=== PATIENT | male | born 1955 | race Asian ===

== ENCOUNTER 2019-05-21 06:49 | Day surgery (SDC) | payer OTHER ==
[~2019-05-21] VITALS: Ht 167.6 cm; Wt 79.4 kg
[2019-05-21] MEDS ORDERED: METO50TE2 PO (07:39)
[2019-05-21] MEDS ORDERED: ATOR20TA PO (07:39)
[2019-05-21] MEDS ORDERED: ALLO100T21 PO (07:39)
[2019-05-21] MEDS ORDERED: LIDOCAINE 2% 100 MG/5 ML UJET TP ONE (08:21)
[2019-05-21] MEDS ORDERED: fentaNYL 0.05 MG/ML VIAL ONE (08:21)
== END 2019-05-21 09:42 | disposition home or self-care (01) ==
LOC: MOR 06:49 → MTU 06:57 → MOR 09:42
PROVIDERS: ATTEND Internal Medicine Gastroenterology
DX: Z12.11 Encounter for screening for malignant neoplasm of colon (principal); D12.5 Benign neoplasm of sigmoid colon; K57.30 Diverticulosis of large intestine without perforation or abscess without bleeding; K64.8 Other hemorrhoids; I10 Essential (primary) hypertension; Z86.010 Personal history of colon polyps; Z87.891 Personal history of nicotine dependence; Z79.899 Other long term (current) drug therapy
CPT/HCPCS: 45385; J3010

== ENCOUNTER 2020-10-18 11:26 | Emergency (ER) | payer OTHER ==
[~2020-10-18] VITALS: Ht 160 cm; Wt 77.1 kg
[~2020-10-18 11:26] MED LIST: ALLO100T21 PO; ATOR20TA PO; METO50TE2 PO
[2020-10-18 11:29] VITALS: BP 198/114
--- NOTE | 2020-10-18 11:35 | NUR ---
Patient taken to bed 05
[2020-10-18] MEDS ORDERED: CLONIDINE HYDROCHLORIDE 0.1 MG TAB PO ONE (11:40)
--- NOTE | 2020-10-18 11:52 | NUR ---
65 Y/O MALE BIBA FROM HOME FOR CHEST PRESSURE/PAIN X1 WEEK. PATIENT DENIES ANY SOB/FEVER/COUGH. PATIENT STATES HE FEELS LIKE HE IS WORKING TOO MUCH, AND CHEST PAIN MAY BE CAUSED BY STRESS. PAIN IS 5/10, NON RADIATING. DENIES N/V. AAOX4. GCS 15. AMBULATORY WITH STEADY GAIT. PMH: DM. HTN, STROKE
[2020-10-18 12:17] LABS: BASOPHILS % (AUTO) 0.6 % (0.0-2.0); EOSINOPHILS # (AUTO) 0.3 K/uL (0-0.4); EOSINOPHILS % (AUTO) 4.2 % (0.0-4.0); HEMATOCRIT 47.8 % (36-52); HEMOGLOBIN 16.2 g/dL (12.0-18.0); LYMPHOCYTES % (AUTO) 12.7 % (20.5-51.1); MEAN CORPUSCULAR HEMOGLOBIN 30 pg (27-31); MEAN CORPUSCULAR HGB CONC 34 g/dL (33-37); MONOCYTES # (AUTO) 0.8 K/uL (0.8-1.0); MONOCYTES % (AUTO) 9.6 % (1.7-9.3); NEUTROPHILS # (AUTO) 5.8 K/uL (1.8-7.7); NEUTROPHILS % (AUTO) 72.9 % (42.2-75.2); PLATELET COUNT (AUTO) 202 K/uL (140-450); RED BLOOD CELL COUNT(AUTO) 5.31 MIL/uL (4.20-6.10); RED CELL DISTRIBUTION WIDTH 13.5 % (11.6-13.7)
--- NOTE | 2020-10-18 12:36 | NUR ---
PATIENT STATES HE IS FEELING BETTER, HAS NO MORE PALPITATIONS
[2020-10-18 12:41] LABS: ALBUMIN 4.3 g/dL (3.4-5.0); ANION GAP 13.8 (8-16); CARBON DIOXIDE 26.2 mmol/L (21-32); CREATININE 1.4 mg/dL (0.6-1.3); TOTAL BILIRUBIN 1.3 mg/dL (0.0-1.0)
[2020-10-18 14:50] LABS: FREE T4 (FREE THYROXINE) 1.25 ng/dL (0.76-1.46); MAGNESIUM 2.3 mg/dL (1.8-2.4); THYROID STIMULATING HORMONE 0.52 uIU/mL (0.34-3.74)
[2020-10-18 15:02] VITALS: BP 129/80
--- NOTE | 2020-10-18 15:02 | NUR ---
Patient discharged with v/s stable. Written and verbal after care instructions given and explained. Patient verbalized understanding. Ambulatory with steady gait. All questions addressed prior to discharge. Advised to follow up with PMD.
== END 2020-10-18 15:02 | disposition home or self-care (01) ==
LOC: MED 11:26
DX: R00.2 Palpitations (principal); I10 Essential (primary) hypertension; Z79.899 Other long term (current) drug therapy
CPT/HCPCS: 36415; 71045; 80053; 83735; 83880; 84439; 84443; 84484; 85025; 93005; 99285

== ENCOUNTER 2020-12-02 02:37 | Emergency (ER) | payer OTHER ==
[~2020-12-02] VITALS: Ht 167.6 cm; Wt 78.9 kg
[2020-12-02 02:40] VITALS: BP 177/110
[2020-12-02] MEDS ORDERED: NACL 0.9% 1,000 ML IV ONE (03:00)
[2020-12-02 03:17] LABS: BASOPHILS % (AUTO) 0.8 % (0.0-2.0); EOSINOPHILS # (AUTO) 0.6 K/uL (0-0.4); EOSINOPHILS % (AUTO) 12.5 % (0.0-4.0); HEMATOCRIT 46.3 % (36-52); HEMOGLOBIN 15.3 g/dL (12.0-18.0); LYMPHOCYTES # (AUTO) 0.9 K/uL (2.0-11.5); MEAN CORPUSCULAR HEMOGLOBIN 30 pg (27-31); MEAN CORPUSCULAR HGB CONC 33 g/dL (33-37); MEAN CORPUSCULAR VOLUME 90.5 fL (80-94); MONOCYTES # (AUTO) 0.5 K/uL (0.8-1.0); MONOCYTES % (AUTO) 10.6 % (1.7-9.3); PLATELET COUNT (AUTO) 192 K/uL (140-450); RED BLOOD CELL COUNT(AUTO) 5.11 MIL/uL (4.20-6.10); RED CELL DISTRIBUTION WIDTH 13.6 % (11.6-13.7); WHITE BLOOD COUNT (AUTO) 5.1 K/uL (4.8-10.8)
[2020-12-02 03:32] LABS: NEUTROPHILS % (AUTO) 58.1 % (42.2-75.2)
[2020-12-02 03:33] LABS: ALBUMIN 4.1 g/dL (3.4-5.0); ANION GAP 11.2 (8-16); CARBON DIOXIDE 27.9 mmol/L (21-32); CREATININE 1.1 mg/dL (0.6-1.3); POTASSIUM 4.1 mmol/L (3.5-5.1); TOTAL BILIRUBIN 1.5 mg/dL (0.0-1.0)
[2020-12-02] MEDS ORDERED: CLONIDINE HYDROCHLORIDE 0.1 MG TAB PO ONE (06:25)
[2020-12-02 07:37] VITALS: BP 159/96
== END 2020-12-02 07:37 | disposition home or self-care (01) ==
LOC: MED 02:37
DX: R00.2 Palpitations (principal); R06.02 Shortness of breath; I10 Essential (primary) hypertension; Z79.899 Other long term (current) drug therapy
CPT/HCPCS: 36415; 70450; 71045; 80053; 84484; 85025; 93005; 96360; 99285; J7030

== ENCOUNTER 2021-09-06 01:55 | Emergency (ER) | payer OTHER ==
[~2021-09-06] VITALS: Ht 154.9 cm; Wt 74.8 kg
--- NOTE | 2021-09-06 02:00 | NUR ---
PT KAVITHA BLS. TAKEN TO BED 8
[2021-09-06 02:05] VITALS: BP 169/97
--- NOTE | 2021-09-06 02:05 | NUR ---
RECEIVED IN BED 8 VIA [facility] WITH C/O PALPITATIONS. PT STATED HE COULD HEAR HIS HEART BEAT IN HIS EARS. IS AWAKE, ALERT, AND VERY ANXIOUS., AMBULATED TO FOR UA PMH: HTN, DM
[2021-09-06 02:56] LABS: BASOPHILS % (AUTO) 0.7 % (0.0-2.0); EOSINOPHILS # (AUTO) 0.5 K/uL (0-0.4); EOSINOPHILS % (AUTO) 9.1 % (0.0-4.0); HEMATOCRIT 43.8 % (36-52); HEMOGLOBIN 15.1 g/dL (12.0-18.0); LYMPHOCYTES # (AUTO) 1.5 K/uL (2.0-11.5); LYMPHOCYTES % (AUTO) 28.9 % (20.5-51.1); MEAN CORPUSCULAR HEMOGLOBIN 31 pg (27-31); MEAN CORPUSCULAR HGB CONC 34 g/dL (33-37); MEAN CORPUSCULAR VOLUME 88.7 fL (80-94); MONOCYTES # (AUTO) 0.5 K/uL (0.8-1.0); MONOCYTES % (AUTO) 10.5 % (1.7-9.3); NEUTROPHILS # (AUTO) 2.6 K/uL (1.8-7.7); NEUTROPHILS % (AUTO) 50.8 % (42.2-75.2); PLATELET COUNT (AUTO) 197 K/uL (140-450); RED BLOOD CELL COUNT(AUTO) 4.94 MIL/uL (4.20-6.10); RED CELL DISTRIBUTION WIDTH 13.1 % (11.6-13.7); WHITE BLOOD COUNT (AUTO) 5.2 K/uL (4.8-10.8)
--- NOTE | 2021-09-06 03:00 | NUR ---
AWAKE, VOIDED PER URINAL. ASSISTED WITH POSITIONING FOR COMFORT
[2021-09-06 03:22] LABS: ALBUMIN 3.8 g/dL (3.4-5.0); ANION GAP 10.9 (8-16); CARBON DIOXIDE 29.8 mmol/L (21-32); CREATININE 1.4 mg/dL (0.6-1.3); POTASSIUM 3.7 mmol/L (3.5-5.1); TOTAL BILIRUBIN 1.1 mg/dL (0.0-1.0)
[2021-09-06 03:30] LABS: MAGNESIUM 2.1 mg/dL (1.8-2.4); PHOSPHORUS 4.1 mg/dL (2.5-4.9); THYROID STIMULATING HORMONE 0.97 uIU/mL (0.34-3.74)
--- NOTE | 2021-09-06 04:07 | NUR ---
Dr. Ramirez examining patient.
[2021-09-06] MEDS ORDERED: CLONIDINE HYDROCHLORIDE 0.1 MG TAB PO ONE (04:10)
[2021-09-06 05:08] VITALS: BP 144/78
== END 2021-09-06 05:08 | disposition home or self-care (01) ==
LOC: MED 01:55
DX: R00.2 Palpitations (principal); R00.0 Tachycardia, unspecified; I10 Essential (primary) hypertension; Z79.899 Other long term (current) drug therapy
CPT/HCPCS: 36415; 71045; 80053; 83735; 83880; 84100; 84443; 84484; 85025; 93005; 99285; Q0092

== ENCOUNTER 2022-05-01 19:08 | Emergency (ER) | payer OTHER ==
[~2022-05-01] VITALS: Ht 167.6 cm; Wt 86.2 kg
[2022-05-01 19:21] VITALS: BP 157/98
--- NOTE | 2022-05-01 19:25 | NUR ---
PT TAKEN TO CHAIR A
--- NOTE | 2022-05-01 19:34 | NUR ---
LINDA LOPEZ WITH PATIENT
--- NOTE | 2022-05-01 20:08 | NUR ---
PT TAKEN TO RADIOLOGY
--- NOTE | 2022-05-01 20:24 | NUR ---
Patient being evaluated by physician
[2022-05-01 20:40] LABS: BASOPHILS # (AUTO) 0.1 K/uL (0.00-0.22); BASOPHILS % (AUTO) 0.8 % (0.0-2.0); EOSINOPHILS # (AUTO) 0.6 K/uL (0-0.4); EOSINOPHILS % (AUTO) 7.7 % (0.0-4.0); HEMATOCRIT 46.7 % (36-52); HEMOGLOBIN 15.5 g/dL (12.0-18.0); MEAN CORPUSCULAR HEMOGLOBIN 31 pg (27-31); MEAN CORPUSCULAR HGB CONC 33 g/dL (33-37); MONOCYTES # (AUTO) 0.8 K/uL (0.8-1.0); MONOCYTES % (AUTO) 10.1 % (1.7-9.3); NEUTROPHILS # (AUTO) 5.6 K/uL (1.8-7.7); NEUTROPHILS % (AUTO) 69.4 % (42.2-75.2); PLATELET COUNT (AUTO) 204 K/uL (140-450); RED BLOOD CELL COUNT(AUTO) 5.08 MIL/uL (4.20-6.10); RED CELL DISTRIBUTION WIDTH 14.3 % (11.6-13.7)
[2022-05-01 21:04] LABS: ALBUMIN 4.1 g/dL (3.4-5.0); ANION GAP 12.2 (8-16); ASPARTATE AMINOTRANSFERASE 23 U/L (15-37); CARBON DIOXIDE 26.5 mmol/L (21-32); CHLORIDE 102 mmol/L (98-107); CREATININE 1.3 mg/dL (0.6-1.3); GFR ARICAN-AMERICAN 71 mL/min (>90); GLUCOSE 220 mg/dL (74-106); LIPASE 111 U/L (73-393); POTASSIUM 3.7 mmol/L (3.5-5.1); SODIUM SERUM 137 mmol/L (136-145); TOTAL BILIRUBIN 0.9 mg/dL (0.0-1.0); UREA NITROGEN, BLOOD 16 mg/dL (7-18)
[2022-05-01 21:38] VITALS: BP 150/95
== END 2022-05-01 21:39 | disposition home or self-care (01) ==
LOC: MED 19:08
DX: I10 Essential (primary) hypertension (principal); E11.65 Type 2 diabetes mellitus with hyperglycemia; Z79.4 Long term (current) use of insulin; Z79.899 Other long term (current) drug therapy
CPT/HCPCS: 36415; 71045; 80053; 83690; 84484; 85025; 93005; 99285

== ENCOUNTER 2022-07-31 00:47 | Emergency (ER) | payer OTHER ==
[~2022-07-31] VITALS: Ht 167.6 cm; Wt 82.1 kg
[2022-07-31 00:52] VITALS: BP 154/91
--- NOTE | 2022-07-31 00:53 | NUR ---
PT KAVITHA ALS. TAKEN TO BED 6
--- NOTE | 2022-07-31 01:16 | NUR ---
PT IN GOWN AND BEDSIDE PMO LEAD
[2022-07-31 01:17] LABS: BASOPHILS # (AUTO) 0.1 K/uL (0.00-0.22); EOSINOPHILS # (AUTO) 0.8 K/uL (0-0.4); EOSINOPHILS % (AUTO) 12.6 % (0.0-4.0); HEMATOCRIT 46.7 % (36-52); LYMPHOCYTES # (AUTO) 1.7 K/uL (2.0-11.5); LYMPHOCYTES % (AUTO) 27.6 % (20.5-51.1); MEAN CORPUSCULAR HEMOGLOBIN 31 pg (27-31); MEAN CORPUSCULAR HGB CONC 34 g/dL (33-37); MEAN CORPUSCULAR VOLUME 90.9 fL (80-94); MONOCYTES # (AUTO) 0.7 K/uL (0.8-1.0); MONOCYTES % (AUTO) 11.2 % (1.7-9.3); NEUTROPHILS % (AUTO) 47.6 % (42.2-75.2); PLATELET COUNT (AUTO) 205 K/uL (140-450); RED BLOOD CELL COUNT(AUTO) 5.14 MIL/uL (4.20-6.10); RED CELL DISTRIBUTION WIDTH 13.8 % (11.6-13.7); WHITE BLOOD COUNT (AUTO) 6.3 K/uL (4.8-10.8)
--- NOTE | 2022-07-31 01:20 | NUR ---
67YR OLD MALE BIB EMS C/O PALPATIONS XTONIGHT. PT WAS SLEEPING WHEN PALPATIONS STARTED. DENIES CP OR SOB. PT IS A&OX4 RESP EVEN AND UNLABORED. NSR ON MONITOR. SKIN WARM AN DRY. 20G IV CATH PLACED IN L AC. LABS OBTAINED AND SENT. HOB OF ELEVATED. BED AT LOWEST POSITION SIDE RAILS UP X2. NKDA DM HTN
--- NOTE | 2022-07-31 01:29 | NUR ---
X-Ray at bedside.
[2022-07-31 01:36] LABS: ALBUMIN 3.9 g/dL (3.4-5.0); ANION GAP 11.1 (8-16); ASPARTATE AMINOTRANSFERASE 32 U/L (15-37); CARBON DIOXIDE 29.4 mmol/L (21-32); CHLORIDE 103 mmol/L (98-107); CREATININE 1.3 mg/dL (0.6-1.3); GFR ARICAN-AMERICAN 71 mL/min (>90); GLUCOSE 128 mg/dL (74-106); POTASSIUM 3.5 mmol/L (3.5-5.1); SODIUM SERUM 140 mmol/L (136-145); UREA NITROGEN, BLOOD 19 mg/dL (7-18)
--- NOTE | 2022-07-31 03:03 | NUR ---
Dr. Campuzano examining patient.
--- NOTE | 2022-07-31 03:44 | NUR ---
PT RESTING IN BED. RESP EVEN AND UNLABORED. 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 PENDING RESULTS
[2022-07-31] MEDS ORDERED: LORazepam 1 MG TAB PO ONE (04:15)
--- NOTE | 2022-07-31 04:47 | NUR ---
PT IS FEELING ANXIOUS MEDS GIVEN. PROVIDED COMFORT MEASURES FOR PT. WILL CONTINUE TO MONITOR AND PROVIDE SUPPORT WHEN NEEDED
--- NOTE | 2022-07-31 06:12 | NUR ---
PT RESTING IN BED . PT STATES FEELING LESS ANXIOUS . PENDING DISPO PAPERWORK
[2022-07-31 06:19] VITALS: BP 127/77
--- NOTE | 2022-07-31 06:19 | NUR ---
Chart checked and completed.
== END 2022-07-31 06:19 | disposition home or self-care (01) ==
LOC: MED 00:47
DX: R00.2 Palpitations (principal); I10 Essential (primary) hypertension; Z79.899 Other long term (current) drug therapy
CPT/HCPCS: 36415; 71045; 80053; 84484; 85025; 93005; 99285; Q0092

== ENCOUNTER 2022-08-22 23:21 | Emergency (ER) | payer OTHER ==
[~2022-08-22] VITALS: Ht 167.6 cm; Wt 86.2 kg
[2022-08-22 23:25] VITALS: BP 167/93
--- NOTE | 2022-08-22 23:25 | NUR ---
PT KAVITHA ALS. TAKEN TO BED 3
--- NOTE | 2022-08-22 23:35 | NUR ---
ASSUMED CARE AT THIS TIME. PT A&O X4. C/O PALPITATIONS WHEN HE WOKE UP AN HOUR AGO. DENIES CHEST PAIN. NKA. MEDICAL HX OF HYPERTENSION AND DM PER PATIENT.
--- NOTE | 2022-08-22 23:38 | NUR ---
Dr. Sagastume examining patient.
[2022-08-23 00:10] LABS: BASOPHILS # (AUTO) 0.1 K/uL (0.00-0.22); BASOPHILS % (AUTO) 0.9 % (0.0-2.0); EOSINOPHILS # (AUTO) 0.6 K/uL (0-0.4); EOSINOPHILS % (AUTO) 7.2 % (0.0-4.0); HEMATOCRIT 44.9 % (36-52); HEMOGLOBIN 15.1 g/dL (12.0-18.0); LYMPHOCYTES # (AUTO) 1.9 K/uL (2.0-11.5); LYMPHOCYTES % (AUTO) 23.9 % (20.5-51.1); MEAN CORPUSCULAR HEMOGLOBIN 31 pg (27-31); MEAN CORPUSCULAR HGB CONC 34 g/dL (33-37); MEAN CORPUSCULAR VOLUME 91.4 fL (80-94); MONOCYTES # (AUTO) 0.9 K/uL (0.8-1.0); MONOCYTES % (AUTO) 11.1 % (1.7-9.3); NEUTROPHILS # (AUTO) 4.6 K/uL (1.8-7.7); NEUTROPHILS % (AUTO) 56.9 % (42.2-75.2); PLATELET COUNT (AUTO) 209 K/uL (140-450); RED BLOOD CELL COUNT(AUTO) 4.91 MIL/uL (4.20-6.10); RED CELL DISTRIBUTION WIDTH 13.9 % (11.6-13.7)
--- NOTE | 2022-08-23 00:20 | NUR ---
X-Ray at bedside.
[2022-08-23 00:40] LABS: ALBUMIN 3.5 g/dL (3.4-5.0); ANION GAP 9.9 (8-16); CARBON DIOXIDE 30.5 mmol/L (21-32); CREATININE 1.3 mg/dL (0.6-1.3); POTASSIUM 3.4 mmol/L (3.5-5.1); TOTAL BILIRUBIN 0.7 mg/dL (0.0-1.0)
[2022-08-23 06:41] VITALS: BP 140/93
== END 2022-08-23 03:05 | disposition home or self-care (01) ==
LOC: MED 23:21
DX: R06.4 Hyperventilation (principal); F41.9 Anxiety disorder, unspecified; I10 Essential (primary) hypertension; E78.5 Hyperlipidemia, unspecified; Z98.890 Other specified postprocedural states
CPT/HCPCS: 36415; 71045; 80053; 83880; 84484; 85025; 85379; 93005; 99285; Q0092

== ENCOUNTER 2022-08-28 00:33 | Emergency (ER) | payer OTHER ==
[~2022-08-28] VITALS: Ht 167.6 cm; Wt 86.2 kg
[2022-08-28 00:35] VITALS: BP 167/100
--- NOTE | 2022-08-28 00:35 | NUR ---
Patient taken to bed 12.
--- NOTE | 2022-08-28 00:45 | NUR ---
PT BIBA FOR PALPITAIONS, PT STATES HE WAS SITTING WHEN THE PALPITATIONS STARTED, PT HAS BEEN SEEN HERE SEVERAL TIMES FOR THE SAME REASON, PT STILL WAITING FOR INSURANCE APPROVAL TO SEE CARDIOLOGY FOR FOLLOW UP. 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 HX- DM, HTN.
--- NOTE | 2022-08-28 00:55 | NUR ---
Dr. Lara examining patient.
[2022-08-28 01:14] LABS: BASOPHILS # (AUTO) 0.1 K/uL (0.00-0.22); BASOPHILS % (AUTO) 1.1 % (0.0-2.0); EOSINOPHILS # (AUTO) 0.6 K/uL (0-0.4); EOSINOPHILS % (AUTO) 9.7 % (0.0-4.0); HEMATOCRIT 43.1 % (36-52); HEMOGLOBIN 14.4 g/dL (12.0-18.0); LYMPHOCYTES # (AUTO) 1.6 K/uL (2.0-11.5); LYMPHOCYTES % (AUTO) 24.1 % (20.5-51.1); MEAN CORPUSCULAR HEMOGLOBIN 31 pg (27-31); MEAN CORPUSCULAR HGB CONC 33 g/dL (33-37); MEAN CORPUSCULAR VOLUME 91.9 fL (80-94); MONOCYTES # (AUTO) 0.6 K/uL (0.8-1.0); MONOCYTES % (AUTO) 9.7 % (1.7-9.3); NEUTROPHILS # (AUTO) 3.7 K/uL (1.8-7.7); NEUTROPHILS % (AUTO) 55.4 % (42.2-75.2); PLATELET COUNT (AUTO) 190 K/uL (140-450); RED BLOOD CELL COUNT(AUTO) 4.69 MIL/uL (4.20-6.10); RED CELL DISTRIBUTION WIDTH 13.8 % (11.6-13.7); WHITE BLOOD COUNT (AUTO) 6.6 K/uL (4.8-10.8)
[2022-08-28 01:39] LABS: ALBUMIN 3.5 g/dL (3.4-5.0); ANION GAP 12.6 (8-16); ASPARTATE AMINOTRANSFERASE 27 U/L (15-37); CARBON DIOXIDE 28.9 mmol/L (21-32); CHLORIDE 102 mmol/L (98-107); CREATININE 1.1 mg/dL (0.6-1.3); GFR ARICAN-AMERICAN 86 mL/min (>90); GLUCOSE 129 mg/dL (74-106); MAGNESIUM 2.1 mg/dL (1.8-2.4); POTASSIUM 3.5 mmol/L (3.5-5.1); SODIUM SERUM 140 mmol/L (136-145); TOTAL BILIRUBIN 0.9 mg/dL (0.0-1.0); UREA NITROGEN, BLOOD 15 mg/dL (7-18)
[2022-08-28 02:22] LABS: FREE T4 (FREE THYROXINE) 1.01 ng/dL (0.76-1.46); THYROID STIMULATING HORMONE 1.22 uIU/mL (0.34-3.74)
--- NOTE | 2022-08-28 03:30 | NUR ---
PT STATES HE FEELS BETTER, DENIES ANY CP OR PALPITATIONS, RESTING IN BED.
[2022-08-28 04:01] VITALS: BP 136/68
== END 2022-08-28 04:00 | disposition home or self-care (01) ==
LOC: MED 00:33
DX: R00.2 Palpitations (principal); I10 Essential (primary) hypertension; E11.9 Type 2 diabetes mellitus without complications; Z79.4 Long term (current) use of insulin; Z79.899 Other long term (current) drug therapy
CPT/HCPCS: 36415; 80053; 83735; 84439; 84443; 84484; 85025; 99284